=== PATIENT | male | born 1985 | race African-American/Black ===

== ENCOUNTER 2018-08-12 19:47 | Emergency (ER) | payer OTHER ==
[2018-08-12] MEDS: KETOROLAC 15 MG INJ IV (22:28)
== END 2018-08-12 23:38 | disposition home or self-care (01) ==
LOC: FTE 23:38
DX: J06.9 Acute upper respiratory infection, unspecified (principal); B34.9 Viral infection, unspecified
CPT/HCPCS: 71045; 96372; 99284-25